=== PATIENT | female | born 1940 | race Caucasian/White ===

== ENCOUNTER 2023-04-05 10:47 | Outpatient (CLI) | payer MEDICARE, SELFPAY ==
--- NOTE | ~2023-04-05 | XR_ITS ---
Clinical Indication: Neck pain, dyspnea PA and lateral views of the chest: Comparison: 12/28/2011 Findings: The lungs are clear, without evidence of focal consolidation or pleural effusion. Cardiome diastinal silhouette is within normal limits. Bones and soft tissues are unremarkable. Impression: Normal chest. Reviewed, dictated and finalized at [facility]. Impression: Normal chest.
--- NOTE | ~2023-04-05 | XR_ITS ---
Cervical Spine: AP, lateral, open-mouth views Clinical History: Pain Findings: The normal lordotic curve is maintained. The vertebral bodies and posterior elements appea r intact. There are minimal degenerative disc changes. Pre-vertebral soft tissues are unremarkable. 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 Reviewed, dictated and finalized at [facility]. 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
== END 2023-04-05 10:48 | disposition home or self-care (01) ==
PROVIDERS: PCP Internal Medicine; Visit Provider Internal Medicine
DX: M50.30 Other cervical disc degeneration, unspecified cervical region (principal); R06.00 Dyspnea, unspecified; R09.89 Other specified symptoms and signs involving the circulatory and respiratory systems
CPT/HCPCS: 71046; 72040

== ENCOUNTER 2023-05-17 07:07 | Outpatient (CLI) | payer MEDICARE, SELFPAY ==
--- NOTE | ~2023-05-17 | US_ITS ---
EXAMINATION: US carotid duplex BI DATE: 05/17/2023 07:40 INDICATION: Carotid bruit TECHNIQUE: Grayscale, color Doppler, and pulsed Doppler images of the cervical carotid arteries were obtained. The degree of vessel stenosis is placed in one of the following categories: normal, <50%, 5 0-69%, >=70% but less than near-occlusion, near-occlusion, or total occlusion. Note that percent sten osis relative to normal distal artery lumen diameter is indirectly measured from velocity measurement s as described by Ascencion, et al. Radiology 2003; 229:340-346. Notes: Normal: Peak systolic velocity <125 centimeters/sec and no plaque <50%. Peak systolic velocity <125 ( EDV <40; ICA/CCA PSV ratio <2.0; used these factors only a tandem lesions or low cardiac output or co ntralateral disease) 50-69 %: PSV 125-230 (EDV 40-100; ratio 2-4) >= 70% but less than near occlusion: PSV greater than 230 (EDV > 100; ratio> 4.0) Near Occlusion: PSV that is variable; markedly narrowed lumen Occlusion: Absent flow on color/spectral Doppler and no lumen on fairbanks scale. COMPARISON: None. FINDINGS: RIGHT: The right common carotid artery (CCA) peak systolic velocity (PSV) is 93 cm/s. The right internal car otid artery (ICA) PSV is 92 cm/s. The right ICA end-diastolic velocity (EDV) is 29 cm/s. The right IC A/CCA PSV ratio is 0.99. The external carotid artery (ECA) PSV is 74 cm/s. There is antegrade flow in the right vertebral artery. LEFT: The left CCA PSV is 116 cm/s. The left ICA PSV is 84 cm/s. The left ICA EDV is 35 cm/s. The left ICA/ CCA PSV ratio is 0.72. The ECA PSV is 66 cm/s. There is antegrade flow in the left vertebral artery. IMPRESSION: 1. Less than 50% stenosis in the right internal carotid artery by sonographic criteria. 2. Less than 50% stenosis in the left internal carotid artery by sonographic criteria. Reviewed, dictated and finalized at [facility]. IMPRESSION: 1. Less than 50% stenosis in the right internal carotid artery by sonographic miah kuo. 2. Less than 50% stenosis in the left internal carotid artery by sonographic rebecca olea.
--- NOTE | 2023-05-17 07:21 | ECHO_ITS ---
Patient Info Name: Arabella Smiley Age: 82 years : 1940 Gender: Female Ht: 69 in Wt: 175 lbs BSA: 1.98 m2 HR: 76 bpm BP: 180 / 79 mmHg Heart Rhythm: Sinus Rhythm Technical Quality: Good Exam Date: 05/17/2023 8:20 AM Exam Location: [facility] Patient Status: Outpatient Admit Date: 05/17/2023 Staff Ordering Physician: Lakesha Longo MD Preconstruction Manager: Molly Crenshaw RDCS Attending Provider: Lakesha Longo MD Referring Physician: Donta EARLY; Exam Type: CA echo doppler color flow Study Info Indications - Dyspnea Complete two-dimensional, color flow and Doppler transthoracic echocardiogram is performed. Summary 1. Complete two-dimensional, color flow and Doppler transthoracic echocardiogram is performed. 2. Left ventricular chamber dimension is normal. 3. Left ventricular systolic function is normal, estimated at 60-65%. 4. The left ventricular diastolic function is grade I diastolic dysfunction. 5. E/e' 17 is elevated. 6. Left atrial chamber dimension is mildly enlarged. 7. There is mild aortic valve sclerosis. 8. The mitral valve has moderately calcified annulus. 9. There is mild to moderate mitral valve regurgitation. 10. There is trace tricuspid valve regurgitation. 11. No pulmonary hypertension, estimated pulmonary arterial systolic pressure is 29 mmHg. Left Ventricle E/e' 17 is elevated. Left ventricular chamber dimension is normal. Left ventricular systolic function is normal, estimated at 60-65%. The left ventricular diastolic function is grade I diastolic dysfunction. Right Ventricle Right ventricular systolic function is normal and with normal TAPSE 3.5 cm. Right ventricular chamber dimension is normal. Left Atria Left atrial chamber dimension is mildly enlarged. Right Atria Right atrial chamber dimension is normal. Aortic Valve The aortic valve is trileaflet. There is mild aortic valve sclerosis. There is no aortic valve stenosis. There is no aortic valve regurgitation. Pulmonic Valve There is no pulmonic regurgitation. Mitral Valve The mitral valve has moderately calcified annulus. There is no mitral valve stenosis. There is mild to moderate mitral valve regurgitation. Tricuspid Valve There is trace tricuspid valve regurgitation. No pulmonary hypertension, estimated pulmonary arterial systolic pressure is 29 mmHg. Pericardium/Pleural There is no pericardial effusion. Inferior Vena Cava Normal inferior vena cava with >50% collapse upon inspiration consistent with normal right atrial pressure, 5 mmHg. Aorta The aortic root size at the sinus of Valsalva is normal. Left Ventricular Outflow Tract Name Value Normal LVOT 2D LVOT Diameter 1.8 cm LVOT Doppler LVOT Peak Velocity 97 cm/s LVOT Peak Gradient 3 mmHg LVOT Mean Gradient 2 mmHg LVOT VTI 33 cm LVOT VTI/AV VTI Ratio 0.8 LVOT Stroke Volume 83 ml Pulmonic Valve Name Value Normal
== END 2023-05-17 07:08 | disposition home or self-care (01) ==
PROVIDERS: PCP Internal Medicine; Visit Provider Internal Medicine
DX: I35.8 Other nonrheumatic aortic valve disorders (principal); I65.23 Occlusion and stenosis of bilateral carotid arteries; I34.81 Nonrheumatic mitral (valve) annulus calcification; I34.0 Nonrheumatic mitral (valve) insufficiency; I07.1 Rheumatic tricuspid insufficiency; R93.1 Abnormal findings on diagnostic imaging of heart and coronary circulation
CPT/HCPCS: 93306; 93880

== ENCOUNTER 2023-06-14 08:03 | Outpatient (CLI) | payer MEDICARE, SELFPAY ==
--- NOTE | 2023-06-14 08:22 | EST_ITS ---
Patient Info Name: Arabella Smiley Age: 82 years : 1940 Gender: Female Ht: 60 in Wt: 179 lbs BSA: 1.89 m2 HR: 77 bpm BP: 125 / 63 mmHg Heart Rhythm: Right Bundle Branch Block, Sinus Rhythm Technical Quality: Good Exam Date: 06/14/2023 10:41 AM Exam Location: [facility] Patient Status: Outpatient Admit Date: 06/14/2023 Staff Ordering Physician: Lakesha Longo MD Attending Provider: Lakesha Longo MD Exam Type: CA stress ivone w NM Study Info Indications dyspnea., [id number] - A regadenoson stress test was performed. Summary 1. 1. Negative lexiscan stress test for ischemic ST changes by ECG criteria. 2. 2. Stable hemodynamics throughout the test. 3. 3. Nuclear scan to follow and will be reported separately. Please correlate with it. Protocol: LEXISCAN Stress ECG Details Stage: REST Duration (min): 1 min : 36 sec HR (bpm): 75 SBP (mmHg): 125 DBP (mmHg): 63 Stage: REST Duration (min): 6 min : 48 sec HR (bpm): 75 SBP (mmHg): 125 DBP (mmHg): 63 Stage: STAGE 1 Duration (min): 0 min : 12 sec HR (bpm): 68 SBP (mmHg): 125 DBP (mmHg): 63 Stage: RECOVERY Duration (min): 0 min : 47 sec HR (bpm): 99 SBP (mmHg): 125 DBP (mmHg): 63 Stage: RECOVERY Duration (min): 1 min : 47 sec HR (bpm): 109 SBP (mmHg): 142 DBP (mmHg): 70 Stage: RECOVERY Duration (min): 2 min : 47 sec HR (bpm): 114 SBP (mmHg): 153 DBP (mmHg): 73 Stage: RECOVERY Duration (min): 3 min : 47 sec HR (bpm): 108 SBP (mmHg): 153 DBP (mmHg): 73 Stage: RECOVERY Duration (min): 4 min : 47 sec HR (bpm): 106 SBP (mmHg): 141 DBP (mmHg): 73 Stage: RECOVERY Duration (min): 5 min : 47 sec HR (bpm): 101 SBP (mmHg): 143 DBP (mmHg): 73 Stage: RECOVERY Duration (min): 6 min : 19 sec HR (bpm): 103 SBP (mmHg): 143 DBP (mmHg): 73 Rest HR: 75 bpm Peak HR: 115 bpm Rest Sys BP: 125 mmHg Peak Sys BP: 153 mmHg Max Pred HR: 140 bpm % Max Pred HR: 82 % Target HR: 119 bpm Max RPP: 17,595 bpm*mmHg BP Response: Normal blood pressure response Termination Reason: Completed Protocol Cardiac Symptoms: None Total Time: 0 min : 12 sec Rest Al BP: 63 mmHg Peak Al BP: 73 mmHg Total Dose: 0.4 mg Resting ECG Sinus rhythm with RBBB. Stress ECG None. Arrhythmias None. Report Signatures
--- NOTE | 2023-06-14 15:03 | WPDCARIOSTRE ---
Nuclear Stress Test INDICATIONS Indications: Dyspnea PROCEDURE Procedure Performed: Myocardial Perf Spect-Multi Procedure: Patient underwent a lexiscan stress test and immediately was injected with 27.2 mCi of cardiolyte. Multiple tomographic images were obtained. These are of good quality. There is evidence of large size, severe apical perfusion defect and small size, severe anteroapical perfusion defect with stress imaging. A separate resting images were obtained after patient was injected with 9.4 mCi of cardiolyte. Multiple tomographic images were obtained. These are of good quality. There is no perfusion defects with rest imaging. CONCLUSION Conclusion: 1. Abnormal myocardial perfusion imaging demonstrating large apical and small anteroapical perfusion defect during stress imaging consistent with reversible ischemia. 2. Left ventriculogram demonstrates normal measured ejection fraction of 73% with no wall motion abnormalities. 3. TID score 1.0 is normal.
== END 2023-06-14 08:04 | disposition home or self-care (01) ==
LOC: CHSCARD 08:05
PROVIDERS: PCP Internal Medicine; Visit Provider Internal Medicine
DX: R06.00 Dyspnea, unspecified (principal); R94.31 Abnormal electrocardiogram [ECG] [EKG]; R94.39 Abnormal result of other cardiovascular function study
CPT/HCPCS: 78452; 93017; A9502; J2785